=== PATIENT | male | born 1980 | race Caucasian/White ===

== ENCOUNTER 2020-05-19 22:04 | Emergency (ER) | payer MEDICAID ==
[~2020-05-19] VITALS: Ht 165.1 cm; Wt 59.0 kg
--- NOTE | 2020-05-19 22:13 | NUR ---
BIBS FOR C/O DEPRESSION AND SI. REQUESTING VOLUNTARY PSYCH ADMISSION TO [facility]. PT A, OX3, AMBULATORY WITH STEADY GAITS. ABLE TO PROVIDE URINE SAMPLE. NEEDS ATTENDED. VSS. PT REMAINED ON SI PRECAUTION. WILL CONT TO MONITOR ,
--- NOTE | 2020-05-19 22:31 | NUR ---
urine sample and covid swab sent to lab
[2020-05-19 22:38] LABS: BILIRUBIN,URINE SMALL (NEGATIVE); COLOR,URINE YELLOW (YELLOW); LEUKOCYTE ESTERASE ,URINE Negative (NEGATIVE); NITRITE, URINE Negative (NEGATIVE); PH,URINE 5.5 (5.0-8.0); PROTEIN,URINE >=300 mg/dl (NEGATIVE); UGLUCOSE Negative (NEGATIVE)
[2020-05-19 22:51] LABS: BACTERIA,URINE Rare /HPF (None Seen); RBC,URINE NONE SEEN /HPF (0-2); SQUAMOUS EPITHELIAL CELL,UR Few /HPF (None Seen); WBC,URINE NONE SEEN /HPF (0-3)
[2020-05-19 22:57] LABS: BASOPHILS % (AUTO) 0.4 % (0.0-2.0); EOSINOPHILS % (AUTO) 2.9 % (0.0-6.0); HEMATOCRIT 46 % (39-51); HEMOGLOBIN 15.7 g/dL (13.5-17.5); LYMPHOCYTES # (AUTO) 0.7 /CMM (0.8-4.8); LYMPHOCYTES % (AUTO) 15.2 % (20.0-44.0); MEAN CORPUSCULAR HGB CONC 34 g/dl (31.0-36.0); MEAN CORPUSCULAR VOLUME 91 fL (80-96); MONOCYTES # (AUTO) 0.6 /CMM (0.1-1.30); MONOCYTES % (AUTO) 12.6 % (2.0-12.0); NEUTROPHILS # (AUTO) 3.4 /CMM (1.8-8.9); NEUTROPHILS % (AUTO) 68.9 % (43.0-81.0); PLATELET COUNT (AUTO) 114 /CMM (150-450); RED BLOOD CELL COUNT(AUTO) 5.08 MIL/uL (4.5-6.0); WHITE BLOOD COUNT (AUTO) 4.9 K/uL (4.3-11.0)
[2020-05-19 23:16] LABS: ALANINE AMINOTRANSFERASE 53 U/L (12-78); ALBUMIN 3.3 g/dL (3.4-5.0); ALCOHOL, BLOOD < 3 mg/dL (0-0); ALKALINE PHOSPHATASE 106 U/L (46-116); ASPARTATE AMINOTRANSFERASE 54 U/L (15-37); BILIRUBIN,DIRECT 0.2 mg/dL (0.0-0.2); BILIRUBIN,TOTAL 0.6 mg/dL (0.2-1.0); CALCIUM, SERUM 8.7 mg/dL (8.5-10.1); CARBON DIOXIDE 29 mmol/L (21-32); CHLORIDE 101 mmol/L (98-107); CREATININE 1.1 mg/dL (0.6-1.3); GLUCOSE 118 mg/dL (74-106); POTASSIUM 3.8 mmol/L (3.5-5.1); SODIUM SERUM 138 mmol/L (136-145); TOTAL PROTEIN, SERUM 8.4 g/dL (6.4-8.2); UREA NITROGEN, BLOOD 12 mg/dL (7-18)
[2020-05-19 23:20] LABS: ACETAMINOPHEN < 2 ug/ml (10-30)
--- NOTE | 2020-05-19 23:20 | NUR ---
ANTIGERN VOVID RESULTS: NEGATIVE
--- NOTE | 2020-05-19 23:41 | NUR ---
CLINICAL AND FACESHEET FAXED TO [facility] INTAKE FOR VOLUNTARY PSYCH ADMISSION.
--- NOTE | 2020-05-20 02:05 | NUR ---
TRANSFER INFORMATION: PT ACCEPTED AT [facility] ACCEPTING MD FRAUSTO/YURIDIA PHONE# FOR REPORT PT WILL GO TO UNIT 2
--- NOTE | 2020-05-20 02:09 | NUR ---
[facility] ETA 30-40MIN ETA.
--- NOTE | 2020-05-20 02:11 | NUR ---
PT REFUSE TRANSFER/TRANSPORT AND CHANGED HIS MIND ABOUT GOING TO [facility] / [facility]. PT DENIES SI/HI AT THIS TIME.
--- NOTE | 2020-05-20 02:31 | NUR ---
SECURITY CALLED REGARDING PT SLEEPING UNDER THE WAITING ROOM CHAIR AND REFUSING TO GET UP. [employer] CALLED TO ESCORT PT OUT.
[2020-05-20 02:41] VITALS: BP 109/66
== END 2020-05-20 02:42 | disposition home or self-care (01) ==
LOC: ER 22:11
DX: R45.851 Suicidal ideations (principal); F32.9 Major depressive disorder, single episode, unspecified; Z20.822 Contact with and (suspected) exposure to COVID-19; F19.10 Other psychoactive substance abuse, uncomplicated
CPT/HCPCS: 36415; 80048; 80076; 80299; 80307; 80320; 81001; 85025; 87426; 99285; C9803; G0480